=== PATIENT | male | born 1955 | race Caucasian/White ===

== ENCOUNTER 2022-09-07 11:16 | Emergency (ER) | payer MEDICARE, OTHER, SELFPAY ==
--- NOTE | ~2022-09-07 | XR_ITS ---
XR finger 5th LT min 2V DATE: 09/07/2022 12:07 INDICATION: Trauma.] Caught in drill. Cut and twisted finger backwards TECHNIQUE: 4 views COMPARISON: None FINDINGS: Anterior distal soft tissue laceration. There may be a very subtle pinpoint faint radiopaqu e subcutaneous soft tissue foreign body near the laceration. Skeletal linear lucency at the anterior base of the distal phalanx may indicate a very subtle small i ncomplete fracture of the anterior base. Probable degenerative ossicle or old small fracture at the anterior aspect of the proximal interphala ngeal joint IMPRESSION: Distal anterior soft tissue laceration and possible subtle pinpoint faint radiopaque soft tissue foreign body Possible very subtle linear incomplete nondisplaced fracture at the anterior base of the distal phala nx Reviewed, dictated and finalized at location [facility]. [employer]IST[employer] IMPRESSION: Distal anterior soft tissue laceration and possible subtle pinpoint faint radiopaque soft tissue foreign body Possible very subtle linear incomplete nondisplaced fracture at the anterior ba se of the distal phalanx
[2022-09-07 11:56] VITALS: BP 149/74; PULSE 63; RESP 20; TEMP 36.7; O2SAT 98
--- NOTE | 2022-09-07 12:19 | ED.WOUNDLAC ---
HPI - Wound/Laceration General Chief Complaint: Wound/Laceration Stated Complaint: laceration Time Seen by Provider: 09/07/22 12:02 Source: patient Mode of arrival: ambulatory Limitations: no limitations History of Present Illness HPI narrative: Patient presents today with a left 5th finger laceration that was sustained when using a drill. States the drill got caught on his glove and twisted his finger backwards. Currently rates pain 4/10. He is up-to-date on his tetanus vaccine. He denies any numbness or tingling in the finger or hand. Related Data Home Medications Medication Instructions Recorded Confirmed albuterol sulfate 90 mcg/actuation 2 inh inhalation DIRECTED 09/07/22 09/07/22 aerosol inhaler amlodipine 5 mg tablet 5 mg PO DAILY 09/07/22 09/07/22 lisinopril 10 mg tablet 10 mg PO DAILY 09/07/22 09/07/22 Allergies Allergy/AdvReac Type Severity Reaction Status Date / Time No Known Allergies Allergy Verified 09/07/22 12:17 Review of Systems Review of Systems: CONSTITUTIONAL: Denies body aches, fever, chills, or sweats. EYES: Denies visual changes, redness, or discharge. ENT: Denies rhinorrhea, congestion, sore throat, or otalgia. CARDIOVASCULAR: Denies chest pain, palpitations, or edema. RESPIRATORY: Denies cough or dyspnea. GASTROINTESTINAL: Denies abdominal pain, nausea, vomiting, or diarrhea. GENITOURINARY: Denies dysuria or hematuria. SKIN: Denies rash, itching. + finger laceration MUSCULOSKELETAL: Denies back pain, joint pain, or myalgia. NEUROLOGIC: Denies headache, numbness, tingling, or weakness. PSYCH: Denies depression or anxiety. FORMERLY [facility] Past Medical History Medical History (Updated 09/07/22 @ 12:43 by Esther Fuentes, [employer], ) Hypertension Comments At time of signature, I have reviewed and agree with nursing past medical, surgical, social and family history unless otherwise noted. Please see nursing chart for further information. There is no relevant family history pertinent to the presenting complaint Exam Narrative: GENERAL: Well-appearing, well-nourished, and in no acute distress. HEAD: Normocephalic, atraumatic. EYES: EOMI. No redness or drainage. Conjunctivae normal. ENT: Mucous membranes pink and moist. NECK: Normal AROM. CHEST: No respiratory distress. EXTREMITIES: Left 5th finger: 1 cm full-thickness linear laceration to the pad of the finger with large amount of fat protruding. No active bleeding. Distal sensation intact. Capillary refill normal. Full range of motion of the finger. SKIN: Warm, dry, no rash. Capillary refill normal. Normal skin turgor. NEURO: No focal deficits. Alert and oriented x3. Gait steady. PSYCH: Normal affect. No signs of depression or anxiety. Course Course Level of Care: Express Care Visit Vital Signs Vital signs: Vital Signs Temperature 98.1 F 09/07/22 11:56 Pulse Rate 63 09/07/22 11:56 Respiratory Rate 20 09/07/22 11:56 Blood Pressure 149/74 H 09/07/22 11:56 Pulse Oximetry 98 09/07/22 11:56 Oxygen Delivery Room Air 09/07/22 11:56 Temperature 98.1 F 09/07/22 11:56 Pulse Rate 63 09/07/22 11:56 Respiratory Rate 20 09/07/22 11:56 Blood Pressure 149/74 H 09/07/22 11:56 Pulse Oximetry 98 09/07/22 11:56 Oxygen Delivery Room Air 09/07/22 11:56 Reviewed. Pt has been instructed to follow up with his PCP regarding his elevated blood pressure today. Procedures Laceration Laceration 1: Date: 09/07/22 Time: 12:39 Side (If applicable): left Size (cm): 1 Description: linear Depth: simple, single layer Local Anesthetic: lidocaine 1% Amount of anesthesia used (mL): 3 Pre-repair: wound explored and irrigated ====== Skin Level ====== Skin layer closed with: nylon Size (cm): 5-0 Number of sutures: 3 Technique: simple, interrupted ====== Subcutaneous Layer ====== ====== Muscle Layer ====
== END 2022-09-07 12:45 | disposition home or self-care (01) ==
PROVIDERS: Emergency Provider Nurse Practitioner
DX: S62.667B Nondisplaced fracture of distal phalanx of left little finger, initial encounter for open fracture (principal); W29.8XXA Contact with other powered hand tools and household machinery, initial encounter; I10 Essential (primary) hypertension
CPT/HCPCS: 12001; 29130; 73140; 99204; G0463

== ENCOUNTER 2022-09-16 12:59 | Emergency (ER) | payer MEDICARE, OTHER, SELFPAY ==
--- NOTE | 2022-09-16 13:01 | ED.WOUNDLAC ---
HPI - Wound/Laceration General Chief Complaint: Skin/Abscess/Foreign Body Stated Complaint: Stitch Removal Pinky Finger Lt Hand Time Seen by Provider: 09/16/22 13:01 Source: patient Mode of arrival: ambulatory Limitations: no limitations History of Present Illness HPI narrative: Mr. Salas is a 67-year-old male patient presenting to the clinic today for a suture removal. He cut his finger using a drill on September 07 and was seen in the clinic for laceration repair. X-ray was performed at that time and showed he has a left 5th finger distal phalanx finger fracture. He was placed on Augmentin and has finished the antibiotic. He has been wearing a metal splint. Related Data Home Medications Medication Instructions Recorded Confirmed albuterol sulfate 90 mcg/actuation 2 inh inhalation DIRECTED 09/07/22 09/07/22 aerosol inhaler amlodipine 5 mg tablet 5 mg PO DAILY 09/07/22 09/07/22 lisinopril 10 mg tablet 10 mg PO DAILY 09/07/22 09/07/22 Allergies Allergy/AdvReac Type Severity Reaction Status Date / Time No Known Allergies Allergy Verified 09/16/22 13:02 Review of Systems Review of Systems: At the time of visit patient is resting comfortably on the exam table. He is here for suture removal and wound appears to be well healing. Three interrupted sutures were removed from the left 5th palmar aspect of finger. Supportive measures were discussed with the patient and he voiced understanding discharge instructions agrees to treatment plan. Recommend wearing his metal finger splint for an additional 3 weeks as his finger fracture heals PMFSH Past Medical History Medical History (Updated 09/16/22 @ 13:16 by Jason Elliott, FRANCO) Hypertension Comments At the time of my signature, I reviewed and agree with the nursing past medical, surgical, social, and family history. There is no relevant family history pertinent to the patient complaint. Exam Narrative: General: Well-developed, well nourished, in no apparent distress Head: Normocephalic, atraumatic. Cardio: Regular rate and rhythm, s1 and s2 normal, no murmur appreciated. Resp: Clear to auscultation bilaterally, no rhonchi, rales, wheezing or rubs. Integumentary: Rennert, warm, and dry, intact without lesion, no rashes. 1 cm healing wound to the left 5th palmar aspect of the distal phalanx, [address]-removed successfully in the clinic using iris scissors and pickups Course Course Emergency Course: Portions of this record may have been created with voice recognition software. Level of Care: Express Care Visit Vital Signs Vital signs: Vital signs reviewed MDM - Wound/Laceration MDM Narrative Medical decision making narrative: At the time of visit patient is resting comfortably on exam table. Three interrupted sutures were removed and the wound appears to be well healing. Recommend wearing metal finger splint x3 more weeks as his finger fracture heals. Supportive measures were discussed with the patient he voiced understanding of discharge instructions and agrees to treatment plan. Differential Diagnosis Differential diagnosis: Likely other (Suture removal) Discharge Plan Discharge Clinical Impression: Encounter for removal of sutures Patient Disposition: Home, Self-Care Condition: Stable Instructions: Antibiotic Form, Stitches Removal (ED) Additional Instructions: Keep area clean and dry Wash daily with soap water Where metal splint for an additional 3 weeks to allow for your finger fracture to heal. May take out of the splint 3 times daily to practice range of motion exercises (flexion and extension of finger) May take Tylenol/Motrin as needed for pain Follow-up with your PCP as needed Prescriptions: No Action amlodipine 5 mg tablet 5 mg PO DAILY lisinopril 10 mg tablet 10 mg PO DAILY albuterol sulfate 90 mcg/actuation HFA aerosol inhaler 2 inh INHALATION DIRECTED PRN (Reas
[2022-09-16 13:09] VITALS: BP 138/72; PULSE 68; RESP 20; TEMP 36.3; O2SAT 97
== END 2022-09-16 13:16 | disposition home or self-care (01) ==
PROVIDERS: Emergency Provider Nurse Practitioner Family
DX: S61.217D Laceration without foreign body of left little finger without damage to nail, subsequent encounter (principal); W29.8XXD Contact with other powered hand tools and household machinery, subsequent encounter; I10 Essential (primary) hypertension
CPT/HCPCS: 99211; G0463